=== PATIENT | female | born 2000 | race Two or more races ===

== ENCOUNTER 2020-11-06 03:28 | Inpatient (IN) | payer SELFPAY ==
[2020-11-06] MEDS ORDERED: Acetaminophen 325 MG Tab PO PRN ×2 (04:10→11:33)
[2020-11-06] MEDS ORDERED: Nalbuphine 10 MG/1 ML Vial IVPUSH PRN (04:10)
[2020-11-06] MEDS ORDERED: Ondansetron 4 MG/2 ML SDV IVPUSH PRN (04:10)
[2020-11-06] MEDS ORDERED: Sodium Chloride 0.9% 10 ML Syringe FLUSH PRN (04:10)
[2020-11-06] MEDS ORDERED: Oxytocin/Lactated Ringers 10 UNIT/1,000 ML BAG IV SCH ×2 (04:15)
[2020-11-06] MEDS ORDERED: diphenhydrAMINE 50 MG/ML SDV IVPUSH PRN (04:22)
[2020-11-06] MEDS ORDERED: ePHEDrine 50 MG/ML SDV IVPUSH PRN (04:22)
[2020-11-06] MEDS ORDERED: Bupivacaine/fentaNYL/NS 100 ML Bag EPIDUR PRN (04:22)
[2020-11-06] MEDS ORDERED: fentaNYL 100 MCG/2 ML SDV EPIDUR PRN (04:22)
[2020-11-06] MEDS: Lactated Ringers 1,000 ML IV SCH ×4 (04:32→06:32)
--- NOTE | 2020-11-06 04:53 | PCM.PREANE ---
Preanesthetic Assessment - Procedure Proposed Procedure: sierra - Anesthesia/Transfusion/Family Hx Anesthesia History: No Prior Anesthesia Family History of Anesthesia Reaction: No Transfusion History: No Prior Transfusion(s) - Review of Systems General: No Symptoms Pulmonary: No Symptoms Cardiovascular: No Symptoms Gastrointestinal: No Symptoms Neurological: No Symptoms Other: Reports: None - Physical Assessment Vital Signs: 106/83 100% 91 Height: 5 ft 5 in Weight: 69.127 kg ASA Class: 2 Mental Status: Alert & Oriented x3 Airway Class: Mallampati = 1 Dentition: Reports: Normal Dentition Thyro-Mental Finger Breadths: 3 Mouth Opening Finger Breadths: 3 ROM/Head Extension: Full Lungs: Clear to Auscultation, Normal Respiratory Effort Cardiovascular: Regular Rate, Regular Rhythm - Lab Values: Laboratory Last Values WBC 12.95 K/mm3 (3.98-10.04) H 11/06/20 04:20 RBC 4.28 M/mm3 (3.98-5.22) 11/06/20 04:20 Hgb 11.8 gm/dl (11.2-15.7) 11/06/20 04:20 Hct 36.2 % (34.1-44.9) 11/06/20 04:20 MCV 84.6 fl (79.4-94.8) 11/06/20 04:20 MCH 27.6 pg (25.6-32.2) 11/06/20 04:20 MCHC 32.6 g/dl (32.2-35.5) 11/06/20 04:20 RDW Std Deviation 40.6 fL (36.4-46.3) 11/06/20 04:20 Plt Count 210 K/mm3 (182-369) D 11/06/20 04:20 MPV 10.2 fl (9.4-12.3) 11/06/20 04:20 Neut % (Auto) 75.3 % (34.0-71.1) H 11/06/20 04:20 Lymph % (Auto) 16.0 % (19.3-51.7) L 11/06/20 04:20 [place] % (Auto) 7.4 % (4.7-12.5) 11/06/20 04:20 Eos % (Auto) 0.8 (0.7-5.8) 11/06/20 04:20 Baso % (Auto) 0.1 % (0.1-1.2) 11/06/20 04:20 Neut # (Auto) 9.75 K/mm3 (1.56-6.13) H 11/06/20 04:20 Lymph # (Auto) 2.07 K/mm3 (1.18-3.74) 11/06/20 04:20 [place] # (Auto) 0.96 K/mm3 (0.24-0.36) H 11/06/20 04:20 Eos # (Auto) 0.11 K/mm3 (0.04-0.36) 11/06/20 04:20 Baso # (Auto) 0.01 K/mm3 (0.01-0.08) 11/06/20 04:20 - Allergies Allergies/Adverse Reactions: Allergies Allergy/AdvReac Type Severity Reaction Status Date / Time No Known Allergies Allergy Verified 11/06/20 04:18 - Blood Blood Available: No - Acknowledgements Anesthesia Type Planned: Epidural Pt an Appropriate Candidate for the Planned Anesthesia: Yes Alternatives and Risks of Anesthesia Discussed w Pt/Guardian: Yes Pt/Guardian Understands and Agrees with Anesthesia Plan: Yes PreAnesthesia Questionnaire Cardiovascular History: Reports: None Respiratory History: Reports: None Gastrointestinal History: Reports: GERD (with preg) - History Comment History Comment: meds include vits - SUBSTANCE USE Tobacco Use Status *Q: Never Tobacco User Tobacco Use Within Last Twelve Months: No Second Hand Smoke Exposure: No Days Per Week of Alcohol Use: 0 Recreational Drug Use History: No - CURRENT (IN HOUSE) MEDS Current Meds: Current Medications Acetaminophen (Acetaminophen 325 Mg Tab) 650 mg PO Q4H PRN PRN Reason: Pain (Mild 1-3) and fever Diphenhydramine HCl (Diphenhydramine 50 Mg/Ml Sdv) 25 mg IVPUSH Q6H PRN PRN Reason: pruritis Ephedrine Sulfate (Ephedrine 50 Mg/Ml Sdv) 5 mg IVPUSH ASDIRECTED PRN PRN Reason: Hypotension Fentanyl (Fentanyl 100 Mcg/2 Ml Sdv) 100 mcg EPIDUR Q3H PRN PRN Reason: Pain Last Admin: 11/06/20 04:38 Dose: 100 mcg Documented by: Fentanyl/Bupivacaine HCl (Bupivacaine/Fentanyl/Ns 100 Ml Bag) 100 ml EPIDUR ASDIRECTED PRN PRN Reason: Pain Last Admin: 11/06/20 04:38 Dose: 100 ml Documented by: Oxytocin/Lactated Ringer's (Pitocin In Lr 10 Units/1,000 Ml) 10 unit in 1,000 mls @ 100 mls/hr IV .CONTINUOUS CLAUDIA; Protocol Oxytocin/Lactated Ringer's (Pitocin In Lr 10 Units/1,000 Ml) 10 unit in 1,000 mls @ 12 mls/hr IV TITRATE CLAUDIA; Protocol Lactated Ringer's (Ringers, Lactated) 1,000 mls @ 100 mls/hr IV ASDIRECTED CLAUDIA Last Admin: 11/06/20 04:33 Dose: 100 mls/hr Documented by: Nalbuphine HCl (Nalbuphine 10 Mg/1 Ml Vial) 10 mg IVPUSH Q2H PRN PRN Reason: Pain Ondansetron HCl (Ondansetron 4 Mg/2 Ml Sdv) 4 mg IVPUSH Q4H PRN PRN Reason: Nausea/Vomiting Sodium Chloride (Sodium Chloride 0.9% 10 Ml Syringe) 10 ml FLUSH ASDIRECTED PRN PRN Reason: Keep Vein Open
--- NOTE | 2020-11-06 05:46 | PCM.LDHP ---
L&D History of Present Illness - General Date of Service: 11/06/20 Admit Problem/Dx: Patient Status Order with Admit Dx/Problem 11/06/20 04:10 Patient Status [ADT] Routine Admission Diagnosis/Problem Admission Diagnosis/Problem 11/06/20 05:40 Deepa is a 19-year-old 1 para 0 female patient of [facility] at 39-4/7 weeks gestational age with an VINEET of 11/09/2020 who is admitted to labor and delivery on the verification manager of 11/06/2020 in advanced state of labor with cervix at 8 cm, 100% effaced with SROM with resultant clear amniotic fluid. 11/06/20 05:41 Source of Information: Patient History Limitations: Reports: No Limitations - History of Present Illness Introduction:: Deepa is a 19-year-old 1 para 0 female patient of [facility] at 39-4/7 weeks gestational age with an VINEET of 11/09/2020 who is admitted to labor and delivery on the verification manager of 11/06/2020 in advanced state of labor with cervix at 8 cm, 100% effaced with SROM with resultant clear amniotic fluid. She is desiring epidural. heart tones are reassuring. Contractions are occurring every 2 to 3 minutes and are strong. 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 VINEET of 11/09/2020 is determined by a 21-week ultrasound. Patient arrived in our clinic at approximately 21 weeks gestation. She was seen on a regular basis throughout the . She had a relatively unremarkable . She is Surinamese-speaking only but has had an survey methodologist with her each visit. She has made good fundal height growth. Her vital signs been stable throughout the . Her weight gain has been abdirizak roximately 26 pounds. She plans to breast-feed. She had menarche at approximately age 13. Cycles monthly. She is not using any control at the time of conception. Father the baby is not involved with her care. laboratory testing: On first evaluation clinic blood is noted to be a positive with a negative antibody screen. Hemoglobin is 11.4 and platelets are 292,000. She is rubella immune. RPR was nonreactive. Hepatitis B surface antigen and HIV assays were both negative as were her GC and Chlamydia tests. Urine culture was negative. Second trimester hemoglobin was 10.9 and platelets were 290,000. Patient was started on ferrous sulfate 25 mg p.o. daily. Her 1 hour GTT was normal at 107. RPR on 07/31/2020 was negative. Group B strep screen was negative. Allergies: None Medications: 1. Ferrous sulfate 325 mg p.o. daily 2. vitamins daily 3. Vitamin C 100 mg/day Past medical history: Unremarkable Past surgical history: Unremarkable Family history: Father is alive and well. Mother is alive with history of hypothyroidism on medications. Maternal grandmother is alive at age 75 but is recently been diagnosed with ovarian cancer per patient history. Maternal grandfather is secondary to liver cancer. Paternal grandmother is secondary to an accident after falling off a ladder. Paternal grandfather is secondary to an NM at age 80. 1 brother 1 sister are alive and well. There is no family history of any bleeding disorders, blood clotting disorders, anesthesia or asthma problems. No related concerns noted either. Social history: Patient is single. Her father owns an oil related company in the [place] area. She lives in [place]. She denies any significant also alcohol, drugs or tobacco. Father the baby is not involved in . Her friend Hortensia Torres has acted as an survey methodologist in clinic. Review of systems: In general patient has no complaints other than ruptured me mbranes and active labor. She is desiring epidural. Amniotic fluid is clear. Baby has been active. Skin: Negative Lungs: No infectious symptoms or shortness of breath Cardiovascular: No chest pain or exercise intolerance Breasts: No lumps, changes in size, pain, dimpling, discharge or axillary or supraclavicular concerns. GI: Negative : Changes associated with . Musculoskeletal: Negative Neurological: Negative Physical exam: In general the patient is well-developed, well-nourished, pleasant female of stated age in active labor Skin is warm dry without lesions. HEENT, neck and back within normal limits. Lungs are clear with good breath sounds in all lung kenrs. Cardiovascular exam shows regular and rhythm without murmurs. Abdomen is gravid with last fundal height consistent with term .. Genital per digital exam done by nurse is as described above in the HPI.. Extremities and neurological exam are grossly within normal limits. Pain Score: 8 - Related Data Allergies/Adverse Reactions: Allergies Allergy/AdvReac Type Severity Reaction Status Date / Time No Known Allergies Allergy Verified 11/06/20 04:18 Home Medications: Home Meds Ascorbic Acid [Vitamin C] 1,000 mg PO DAILY 11/06/20 [History] Ferrous Sulfate 325 mg PO DAILY 11/06/20 [History] No122/Iron/Folic Acid [ Multi Tablet] 1 tab PO DAILY 11/06/20 [History] Past Medical History Cardiovascular History: Reports: None Respiratory History: Reports: None Gastrointestinal History: Reports: GERD (with preg) - History Comment History Comment: meds include vits Social & Family History - Tobacco Use Tobacco Use Status *Q: Never Tobacco User Second Hand Smoke Exposure: No - Alcohol Use Days Per Week of Alcohol Use: 0 - Recreational Drug Use Recreational Drug Use: No H&P Review of Systems - Review of Systems: Review Of Systems: See Below L&D Exam - Exam Exam: See Below - Vital Signs Vital Signs: Last Vital Signs Temp 36.4 C 11/06/20 04:10 Pulse 85 11/06/20 04:10 Resp 14 11/06/20 04:10 BP 117/66 11/06/20 04:10 Pulse Ox 100 11/06/20 04:10 Weight: 69.127 kg - Patient Data Lab Results Last 24 hrs: Laboratory Results - last 24 hr 11/06/20 11/06/20 Range/Units 04:17 04:20 WBC 12.95 H (3.98-10.04) K/mm3 RBC 4.28 (3.98-5.22) M/mm3 Hgb 11.8 (11.2-15.7) gm/dl Hct 36.2 (34.1-44.9) % MCV 84.6 (79.4-94.8) fl MCH 27.6 (25.6-32.2) pg MCHC 32.6 (32.2-35.5) g/dl RDW Std Deviation 40.6 (36.4-46.3) fL Plt Count 210 D (182-369) K/mm3 MPV 10.2 (9.4-12.3) fl Neut % (Auto) 75.3 H (34.0-71.1) % Lymph % (Auto) 16.0 L (19.3-51.7) % [place] % (Auto) 7.4 (4.7-12.5) % Eos % (Auto) 0.8 (0.7-5.8) Baso % (Auto) 0.1 (0.1-1.2) % Neut # (Auto) 9.75 H (1.56-6.13) K/mm3 Lymph # (Auto) 2.07 (1.18-3.74) K/mm3 [place] # (Auto) 0.96 H (0.24-0.36) K/mm3 Eos # (Auto) 0.11 (0.04-0.36) K/mm3 Baso # (Auto) 0.01 (0.01-0.08) K/mm3 SARS-CoV-2 RNA (DESIREE) Negative (NEGATIVE) Result Diagrams: 11/06/20 04:20 - Problem List (1) 39 weeks gestation of SNOMED Code(s): 57760611 ICD Code: Z3A.39 - 39 WEEKS GESTATION OF Status: Acute Current Visit: Yes (2) Spontaneous rupture of membranes SNOMED Code(s): 758576007 ICD Code: [id number] - Status: Acute Current Visit: Yes Problem List Initiated/Reviewed/Updated: Yes Orders Last 24hrs: Active Orders 24 hr Category Date Time Status Patient Status [ADT] Routine ADT 11/06/20 04:10 Active Activity as Tolerated [RC] PFP Care 11/06/20 04:10 Active Communication Order [RC] ASDIRECTED Care 11/06/20 04:10 Active Heart Tones [RC] ASDIRECTED Care 11/06/20 04:11 Active Notify Provider [RC] ASDIRECTED Care 11/06/20 04:22 Active Notify Provider [RC] PFP Care 11/06/20 04:10 Active Notify Provider [RC] PRN Care 11/06/20 04:10 Active Peripheral IV Care [RC] . DIRECTED Care 11/06/20 04:11 Active Urinary Catheter Assessment [RC] ASDIRECTED Care 11/06/20 04:10 Active Vital Signs [RC] PER UNIT ROUTINE Care 11/06/20 04:10 Active Regular Diet [DIET] Diet 11/06/20 Breakfast Active HEP C VIRUS AB [REF] Stat Lab 11/06/20 04:20 Received RAPID PLASMA REAGIN,RPR [CHEM] Routine Lab 11/06/20 04:20 Received Acetaminophen [TylenoL] Med 11/06/20 04:10 Active 650 mg PO Q4H PRN Bupivacaine/fentaNYL/NS [fentaNYL/Bupivacaine/NS 2 MCG- Med 11/06/20 04:22 Active 0.125% 100 ML] 100 ml EPIDUR ASDIRECTED PRN Lactated Ringers [Ringers, Lactated] 1,000 ml [facility] 11/06/20 04:15 Active IV ASDIRECTED Nalbuphine [Nubain] [facility] 11/06/20 04:10 Active 10 mg IVPUSH Q2H PRN Ondansetron [Zofran] [facility] 11/06/20 04:10 Active 4 mg IVPUSH Q4H PRN Oxytocin/Lactated Ringers [Pitocin in LR 10 Units/1,000 Med 11/06/20 04:15 Active ML] 10 unit in 1,000 ml IV .CONTINUOUS Oxytocin/Lactated Ringers [Pitocin in LR 10 Units/1,000 Med 11/06/20 04:15 Active ML] 10 unit in 1,000 ml IV TITRATE Sodium Chloride 0.9% [Saline Flush] [facility] 11/06/20 04:10 Active 10 ml FLUSH ASDIRECTED PRN diphenhydrAMINE [Benadryl] [facility] 11/06/20 04:22 Active 25 mg IVPUSH Q6H PRN ePHEDrine [ePHEDrine sulfate] [facility] 11/06/20 04:22 Active 5 mg IVPUSH ASDIRECTED PRN fentaNYL [Sublimaze] [facility] 11/06/20 04:22 Active 100 mcg EPIDUR Q3H PRN Electronic Heart Tones Ext w TOCO [WOMSER] Ot 11/06/20 04:10 Ordered Routine Electronic Heart Tones Internal [WOMSER] Per Unit Ot 11/06/20 04:10 Ordered Routine Peripheral IV Insertion Adult [OM.PC] Routine Oth 11/06/20 04:10 Ordered Resuscitation Status Routine Resus Stat 11/06/20 04:10 Ordered Medication Orders Acetaminophen (Acetaminophen 325 Mg Tab) 650 mg PO Q4H PRN PRN Reason: Pain (Mild 1-3) and fever Diphenhydramine HCl (Diphenhydramine 50 Mg/Ml Sdv) 25 mg IVPUSH Q6H PRN PRN Reason: pruritis Ephedrine Sulfate (Ephedrine 50 Mg/Ml Sdv) 5 mg IVPUSH ASDIRECTED PRN PRN Reason: Hypotension Fentanyl (Fentanyl 100 Mcg/2 Ml Sdv) 100 mcg EPIDUR Q3H PRN PRN Reason: Pain Last Admin: 11/06/20 04:38 Dose: 100 mcg Documented by: NICKOLAS Fentanyl/Bupivacaine HCl (Bupivacaine/Fentanyl/Ns 100 Ml Bag) 100 ml EPIDUR ASDIRECTED PRN PRN Reason: Pain Last Admin: 11/06/20 04:38 Dose: 100 ml Documented by: NICKOLAS Oxytocin/Lactated Ringer's (Pitocin In Lr 10 Units/1,000 Ml) 10 unit in 1,000 mls @ 100 mls/hr IV .CONTINUOUS CLAUDIA; Protocol Oxytocin/Lactated Ringer's (Pitocin In Lr 10 Units/1,000 Ml) 10 unit in 1,000 mls @ 12 mls/hr IV TITRATE CLAUDIA; Protocol Lactated Ringer's (Ringers, Lactated) 1,000 mls @ 100 mls/hr IV ASDIRECTED CLAUDIA Last Admin: 11/06/20 05:11 Dose: 100 mls/hr Documented by: Infusion: 11/06/20 05:11 Dose: 100 mls/hr Documented by: Admin: 11/06/20 04:33 Dose: 100 mls/hr Documented by: Infusion: 11/06/20 04:33 Dose: 100 mls/hr Documented by: Admin: 11/06/20 04:32 Dose: 100 mls/hr Documented by: NICKOLAS Nalbuphine HCl (Nalbuphine 10 Mg/1 Ml Vial) 10 mg IVPUSH Q2H PRN PRN Reason: Pain Ondansetron HCl (Ondansetron 4 Mg/2 Ml Sdv) 4 mg IVPUSH Q4H PRN PRN Reason: Nausea/Vomiting Sodium Chloride (Sodium Chloride 0.9% 10 Ml Syringe) 10 ml FLUSH ASDIRECTED PRN PRN Reason: Keep Vein Open Assessment/Plan Comment:: Billy Arenas is a 19-year-old 1 para 0 female patient of [facility] at 39-4/7 weeks gestational age with an VINEET of 11/09/2020 who is admitted to labor and delivery on the verification manager of 11/06/2020 in advanced state of labor with cervix at 8 cm, 100% effaced with SROM with resultant clear amniotic fluid. 2. Group B strep negative 3. Patient desires epidural in labor 4. Patient plans to breast-feed 5. Low risk 6. Surinamese-speaking onlyinterpreter is present with her in the presence of Hortensia Torres 7. Patient is rubella immune. She received her Tdap late second trimester Plan: 1. Anticipate 2. Epidural analgesia for pain relief in labor 3. Support breast-feeding decision 4. Admission labs consist of COVID-19, CBC, RPR per protocol
[2020-11-06] MEDS ORDERED: Witch Hazel Medicated Pads 40/Jar TOP PRN ×2 (09:23→11:33)
[2020-11-06] MEDS ORDERED: Benzocaine/Menthol 20%-0.5% Spray 56 GM Canister TOP PRN ×2 (09:23→11:33)
--- NOTE | 2020-11-06 10:37 | PCM.SN.2 ---
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 She started having contractions approximately 2 days ago. Crease to every 3 to 5 minutes at which time she had SROM with resultant clear fluid at approximately 100 hours on 11/07/2019. She was admitted to the hospital proximal 400 hours on the same day. At the time of admission she was 8 cm dilated 100% effaced and clear amniotic fluid was confirmed on vaginal exam. She received an epidural for analgesia with good results. She progressed rapidly to complete cervical dilation by 0650 hrs. She began pushing at that time over the course of the next 70 minutes she pushed well. heart tones were reassuring throughout the entire labor. Stage II: Deepa delivered a viable, garcia, female infant named Pete at 0802 hrs. on 11/06/2020. She delivered in a right occiput anterior position. The baby was placed on her abdomen, dried with a warm blanket. Nose and mouth were bulb suctioned. The umbilical cord was allowed to pulsate for approximat flavia 3 minutes at which time was clamped x2 and cut by the patient's brother. She incurred a second-degree perineal laceration. The laceration was repaired with 3-0 Monocryl in a routine fashion using epidural analgesia for perineal laceration anesthesia. Patient tolerated this well. Baby was laid 3470 g (7 pounds 10.4 ounces), had Apgars of 8 and 9 and a length of 21.5 inches. Pitocin per routine solution protocol was increased to 500 cc an hour to facilitate increase in uterine tone and decrease likelihood of bleeding. Stage III: The placenta delivered at 0812 hrs. in a Schultze presentation. It appeared intact and complete and was discarded per patient desire. There was a three-vessel cord. Estimated blood loss was 600 cc. Patient plans to breast- feed. Condition: Good
[2020-11-06] MEDS ORDERED: Bupivacaine 0.25% 10 ML SDV ONE (11:00)
[2020-11-06] MEDS ORDERED: Docusate Sodium 100 MG Cap PO PRN (11:33)
[2020-11-06] MEDS ORDERED: Ibuprofen 600 MG Tab PO PRN (11:33)
--- NOTE | 2020-11-07 07:36 | PCM48HPAN ---
Post Anesthesia Note - EVALUATION WITHIN 48HRS OF ANESTHETIC Vital Signs in Normal Range: Yes Patient Participated in Evaluation: Yes Respiratory Function Stable: Yes Airway Patent: Yes Cardiovascular Function Stable: Yes Hydration Status Stable: Yes Pain Control Satisfactory: Yes Nausea and Vomiting Control Satisfactory: Yes Mental Status Recovered: Yes Vital Signs: Last Vital Signs Temp 36.1 C 11/07/20 03:19 Pulse 79 11/07/20 03:19 Resp 16 11/07/20 03:19 BP 115/57 L 11/07/20 03:19 Pulse Ox 99 11/07/20 03:19 - COMMENTS/OBSERVATIONS Free Text/Narrative:: no anesthesia complications noted
--- NOTE | 2020-11-07 08:03 | PCM.SN.2 ---
- Free Text/Narrative Note: note: Patient is doing well in the period. Minimal lochia, voiding well, ambulated without problems. Nursing without concerns. Patient is afebrile, vital signs are stable Abdomen is flat, soft, uterus is below the umbilicus and is firm and nontender. Legs are nontender. Assessment: recovery going well. Plan: Routine care. Patient be discharged home within the next 24-48 hours. Patient would like to go home today. Will allow for pediatrics to see the baby and make a judgment thereafter.
[2020-11-07] MEDS ORDERED: Prenatal Multivitamin with Calcium/Folic Acid/Iron Tab PO SCH (09:00)
--- NOTE | 2020-11-08 07:36 | PCM.DCSUM1 ---
Discharge Summary - Hospital Course Diagnosis: Stroke: No - Discharge Data Discharge Date: 11/08/20 Discharge Disposition: Home, Self-Care 01 Condition: Good - Referral to Home Health Primary Care Physician: Awais Cavanaugh MD - Patient Instructions Diet: Usual Diet as Tolerated Activity: No Strenuous Activities Driving: May Drive Today Showering/Bathing: May Shower Wound/Incision Care: Keep Operative Site/Wound Site Clean and Dry Notify Provider of: Fever - Discharge Plan *PRESCRIPTION DRUG MONITORING PROGRAM REVIEWED*: No *COPY OF PRESCRIPTION DRUG MONITORING REPORT IN PATIENT KELSEA: No Home Medications: Home Meds Ascorbic Acid [Vitamin C] 1,000 mg PO DAILY 11/06/20 [History] Ferrous Sulfate 325 mg PO DAILY 11/06/20 [History] No122/Iron/Folic Acid [ Multi Tablet] 1 tab PO DAILY 11/06/20 [History] Referrals: Awais Cavanaugh MD [Primary Care Provider] - (2 weeks) - Discharge Summary/Plan Comment DC Time >30 min.: No - General Info Date of Service: 11/08/20 Functional Status: Reports: Pain Controlled - Review of Systems General: Reports: No Symptoms HEENT: Reports: No Symptoms Pulmonary: Reports: No Symptoms Cardiovascular: Reports: No Symptoms Gastrointestinal: Reports: No Symptoms Genitourinary: Reports: No Symptoms Musculoskeletal: Reports: No Symptoms Skin: Reports: No Symptoms Neurological: Reports: No Symptoms Psychiatric: Reports: No Symptoms - Patient Data Vitals - Most Recent: Last Vital Signs Temp 36.9 C 11/08/20 04:16 Pulse 88 11/08/20 04:16 Resp 14 11/08/20 04:16 BP 98/71 11/08/20 04:16 Pulse Ox 100 11/08/20 04:16 Weight - Most Recent: 69.127 kg I&O - Last 24 hours: Intake & Output 11/07/20 11/08/20 11/08/20 22:59 06:59 14:59 Intake Total 400 Balance 400 Med Orders - Current: Current Medications Acetaminophen (Acetaminophen 325 Mg Tab) 650 mg PO Q4H PRN PRN Reason: mild pain or fever Benzocaine/Menthol (Benzocaine/Menthol 20%-0.5% [place] 56 Gm Canister) 0 gm TOP ASDIRECTED PRN PRN Reason: Perineal Comfort Measure Docusate Sodium (Docusate Sodium 100 Mg Cap) 100 mg PO BID PRN PRN Reason: Constipation Ibuprofen (Ibuprofen 600 Mg Tab) 600 mg PO Q4H PRN PRN Reason: Mild pain or fever Prenat Multivit/Hog Feeder/Iron/Folic Ac ( Multivitamin With Calcium/Folic Acid/Iron Tab) 1 each PO DAILY CLAUDIA Last Admin: 11/07/20 08:41 Dose: 1 each Documented by: Sherlyn Jennings (Sherlyn Jennings Medicated Pads 40/Jar) 1 pad TOP ASDIRECTED PRN PRN Reason: Perineal Comfort Measure Discontinued Medications Acetaminophen (Acetaminophen 325 Mg Tab) 650 mg PO Q4H PRN PRN Reason: Pain (Mild 1-3) and fever Benzocaine/Menthol (Benzocaine/Menthol 20%-0.5% [place] 56 Gm Canister) 0 gm TOP ASDIRECTED PRN PRN Reason: Perineal Comfort Measure Last Admin: 11/06/20 10:13 Dose: 1 can Documented by: Bupivacaine HCl (Bupivacaine 0.25% 10 Ml Sdv) 10 ml .ROUTE .[facility] ONE Stop: 11/06/20 11:01 Diphenhydramine HCl (Diphenhydramine 50 Mg/Ml Sdv) 25 mg IVPUSH Q6H PRN PRN Reason: pruritis Ephedrine Sulfate (Ephedrine 50 Mg/Ml Sdv) 5 mg IVPUSH ASDIRECTED PRN PRN Reason: Hypotension Fentanyl (Fentanyl 100 Mcg/2 Ml Sdv) 100 mcg EPIDUR Q3H PRN PRN Reason: Pain Last Admin: 11/06/20 04:38 Dose: 100 mcg Documented by: Fentanyl/Bupivacaine HCl (Bupivacaine/Fentanyl/Ns 100 Ml Bag) 100 ml EPIDUR ASDIRECTED PRN PRN Reason: Pain Last Admin: 11/06/20 04:38 Dose: 100 ml Documented by: Oxytocin/Lactated Ringer's (Pitocin In Lr 10 Units/1,000 Ml) 10 unit in 1,000 mls @ 100 mls/hr IV .CONTINUOUS CLAUDIA; Protocol Last Admin: 11/06/20 08:03 Dose: 100 mls/hr Documented by: Oxytocin/Lactated Ringer's (Pitocin In Lr 10 Units/1,000 Ml) 10 unit in 1,000 mls @ 12 mls/hr IV TITRATE CLAUDIA; Protocol Lactated Ringer's (Ringers, Lactated) 1,000 mls @ 100 mls/hr IV ASDIRECTED CLAUDIA Last Admin: 11/06/20 06:32 Dose: 100 mls/hr Documented by: Nalbuphine HCl (Nalbuphine 10 Mg/1 Ml Vial) 10 mg IVPUSH Q2H PRN PRN Reason: Pain Ondansetron HCl (Ondansetron 4 Mg/2 Ml Sdv) 4 mg IVPUSH Q4H PRN PRN Reason: Nausea/Vomiting Sodium Chloride (Sodium Chloride 0.9% 10 Ml Syringe) 10 ml FLUSH ASDIRECTED PRN PRN Reason: Keep Vein Open Witch Michaela (Witch Michaela Medicated Pads 40/Jar) 1 pad TOP ASDIRECTED PRN PRN Reason: Perineal Comfort Measure Last Admin: 11/06/20 10:13 Dose: 1 can Documented by: - Exam General: Reports: Alert, Oriented HEENT: Reports: Pupils Equal, Pupils Reactive, EOMI, Mucous Membr. Moist/[place] Neck: Reports: Supple Lungs: Reports: Clear to Auscultation, Normal Respiratory Effort Cardiovascular: Reports: Regular Rate, Regular Rhythm GI/Abdominal Exam: Normal Bowel Sounds, Soft, Non-Tender, No Organomegaly, No Distention, No Abnormal Bruit, No Mass, Pelvis Stable Rectal (Female) Exam: Normal Exam, Normal Rectal Tone Back Exam: Reports: Normal Inspection, Full Range of Motion Extremities: Normal Inspection, Normal Range of Motion, Non-Tender, No Pedal Edema, Normal Capillary Refill Skin: Reports: Warm, Dry, Intact Wound/Incisions: Reports: Healing Well Neurological: Reports: No New Focal Deficit Psy/Mental Status: Reports: Alert, Normal Affect, Normal Mood
== END 2020-11-08 11:40 | disposition home or self-care (01) | DRG 807 ==
LOC: JD.OBCHECK 03:28 → JD.OB 03:28 → JD.OBCHECK 04:09 → JD.OB 04:10 → OBSVTOIN 08:02 → JD.OB 08:03
PROVIDERS: ADMIT Obstetrics & Gynecology; ATTEND Obstetrics & Gynecology
PROC: 10E0XZZ Delivery of Products of Conception, External Approach (ICD-10-PCS; principal; 2020-11-06)
PROC: 0KQM0ZZ Repair Perineum Muscle, Open Approach (ICD-10-PCS; 2020-11-06)
PROC: 3E0R3BZ Introduction of Anesthetic Agent into Spinal Canal, Percutaneous Approach (ICD-10-PCS; 2020-11-06)
DX: O70.1 Second degree perineal laceration during delivery (principal); Z37.0 Single live birth; Z3A.39 39 weeks gestation of pregnancy; Z20.822 Contact with and (suspected) exposure to COVID-19
CPT/HCPCS: 01967; 36415; 51701; 59025; 59409; 85025; 86592; 86803; A9270-GY; J2590; J3010; J3490; J7120; U0002